=== PATIENT | female | born 1970 | race Native Hawaiian/Other Pacific Islander ===

== ENCOUNTER 2018-07-01 08:04 | Outpatient (CLI) | payer SELFPAY | END 2018-07-01 08:05 | disposition home or self-care (01) | LOC: C.LAB 08:04 | DX: I10 Essential (primary) hypertension (principal); R73.03 Prediabetes; R74.8 Abnormal levels of other serum enzymes ==

== ENCOUNTER 2018-07-02 08:02 | Outpatient (CLI) | payer SELFPAY | END 2018-07-02 08:03 | disposition home or self-care (01) | LOC: C.LAB 08:02 | DX: I10 Essential (primary) hypertension (principal); R73.03 Prediabetes; R74.8 Abnormal levels of other serum enzymes ==